=== PATIENT | male | born 1950 | race African-American/Black ===

== ENCOUNTER 2018-09-20 15:59 | Inpatient (IN) ==
[2018-09-20 18:24] LABS: Basophils % 0.4 % (0.0-0.8); Eosinophils % 0.1 % (0.00-10.9); Hematocrit 40.6 VOL% (42.0-52.0); Hemoglobin 12.7 GM/DL (14.0-18.0); Immature Granulocytes % 0.4 %; Immature Granulocytes Absolute 0.03 #; Lymphocytes % 12.9 % (21.2-54.2); Mean Corpuscular HGB Conc 31.3 GM/DL (32-36); Mean Corpuscular Hemoglobin 27 PG (27-34); Mean Corpuscular Volume 86.9 FL (87-102); Mean Platelet Volume 10.3 FL (9.6-12.0); Monocytes # 0.7 10*3/uL (0.11-0.8); Monocytes % 9.2 % (1.7-12.7); Neutrophils # 6.2 10*3/uL (1.4-7.4); Platelet Count 239 T/CUMM (130-400); Red Blood Count 4.67 MC/CUMM (3.8-5.5); Red Cell Distribution Width 14.3 % (9.3-17.3); White Blood Count 8.1 T/CUMM (4-12)
[2018-09-20 18:30] LABS: PT Patient Result 10.6 SECS
[2018-09-20 18:32] LABS: Albumin 4.1 G/DL (3.4-5.0); Bilirubin,Total 0.8 MG/DL (0.2-1.0); Calcium 9.4 MG/DL (8.5-10.1); Osmolality,Calculated 285.4 MOS/KG (273-304); Potassium 4.5 MMOL/L (3.5-5.1); Total Protein 7.8 G/DL (6.4-8.3)
[2018-09-20] MEDS ORDERED: ONDANSETRON 4 MG/2 ML VIAL IV PRN (19:25)
[2018-09-20 20:14] LABS: Apearance,Urine Slightly Hazy (Clear); Bacteria,Urine Occasional /HPF (Few); Bilirubin,Urine Negative (Negative); Blood, Urine Moderate mg/dL (Negative); Glucose,Urine (UA) Negative (Negative); Hyaline Casts,Urine 5 /LPF (0-3); Ketones,Urine 5 mg/dL (Negative); Mucus,Urine Occasional /LPF (Occasional); Nitrite,Urine Negative (Negative); Protein,Urine 100 MG/DL; RBC,Urine 7 /HPF (0-4); Squamous Epithelial Cell,Urine Occasional /HPF (0-10); Urine Color Yellow (Yellow); Urine Specific Gravity 1.025 (1.001-1.035); WBC,Urine 4 /HPF (0-6)
[2018-09-20] MEDS: SODIUM CHLORIDE 0.9% 1,000 ML IV SCH (21:50)
[2018-09-20] MEDS ORDERED: PNEUMOCOCCAL VACCINE (13 VALENT) 0.5 ML SYRINGE IM ONE (22:04)
[2018-09-21] MEDS: SODIUM CHLORIDE 0.9% 1,000 ML IV SCH ×2 (04:44→14:27)
[2018-09-21 05:15] LABS: Basophils % 0.4 % (0.0-0.8); Eosinophils # 0.1 10*3/uL (0.0-0.87); Hematocrit 36.3 VOL% (42.0-52.0); Hemoglobin 11.5 GM/DL (14.0-18.0); Immature Granulocytes % 0.4 %; Immature Granulocytes Absolute 0.02 #; Lymphocytes # 1.2 10*3/uL (1.4-4.0); Lymphocytes % 23.6 % (21.2-54.2); Mean Corpuscular HGB Conc 31.7 GM/DL (32-36); Mean Corpuscular Hemoglobin 27 PG (27-34); Mean Corpuscular Volume 85.8 FL (87-102); Mean Platelet Volume 10.9 FL (9.6-12.0); Monocytes # 0.6 10*3/uL (0.11-0.8); Monocytes % 12.2 % (1.7-12.7); Neutrophils # 3.3 10*3/uL (1.4-7.4); Neutrophils % 62.4 % (38.7-73.9); Platelet Count 213 T/CUMM (130-400); Red Blood Count 4.23 MC/CUMM (3.8-5.5); Red Cell Distribution Width 14.4 % (9.3-17.3); White Blood Count 5.3 T/CUMM (4-12)
[2018-09-21 05:37] LABS: Bilirubin,Total 0.5 MG/DL (0.2-1.0); Calcium 8.4 MG/DL (8.5-10.1); Osmolality,Calculated 293.7 MOS/KG (273-304); Potassium 4.2 MMOL/L (3.5-5.1); Total Protein 6.5 G/DL (6.4-8.3)
[2018-09-21] MEDS: CARBIDOPA/LEVODOPA 25-100 MG TABLET PO SCH ×3 (09:02→20:25)
[2018-09-21] MEDS: PANTOPRAZOLE 40 MG TABLET PO SCH (09:02)
[2018-09-21] MEDS: TEMAZEPAM 15 MG CAPSULE PO PRN (20:31)
[2018-09-21] MEDS: ACETAMINOPHEN 325 MG TABLET PO PRN (22:28)
[2018-09-22 05:15] LABS: Basophils % 0.5 % (0.0-0.8); Eosinophils # 0.1 10*3/uL (0.0-0.87); Eosinophils % 1.9 % (0.00-10.9); Hematocrit 37.3 VOL% (42.0-52.0); Hemoglobin 11.4 GM/DL (14.0-18.0); Immature Granulocytes % 0.2 %; Immature Granulocytes Absolute 0.01 #; Lymphocytes # 1.4 10*3/uL (1.4-4.0); Lymphocytes % 32.5 % (21.2-54.2); Mean Corpuscular HGB Conc 30.6 GM/DL (32-36); Mean Corpuscular Hemoglobin 27 PG (27-34); Mean Corpuscular Volume 88.4 FL (87-102); Mean Platelet Volume 10.6 FL (9.6-12.0); Monocytes # 0.6 10*3/uL (0.11-0.8); Monocytes % 13.4 % (1.7-12.7); Neutrophils # 2.2 10*3/uL (1.4-7.4); Neutrophils % 51.5 % (38.7-73.9); Platelet Count 199 T/CUMM (130-400); Red Blood Count 4.22 MC/CUMM (3.8-5.5); Red Cell Distribution Width 14.1 % (9.3-17.3); White Blood Count 4.2 T/CUMM (4-12)
[2018-09-22 05:33] LABS: Albumin 2.8 G/DL (3.4-5.0); Bilirubin,Total 0.7 MG/DL (0.2-1.0); Calcium 8.3 MG/DL (8.5-10.1); Risk Ratio 3.64; Thyroid Stimulating Hormone 1.92 uIU/ml (0.358-3.74); Total Protein 6.4 G/DL (6.4-8.3); VLDL CHOLESTEROL 21.2 MG/DL
[2018-09-22] MEDS: CARBIDOPA/LEVODOPA 25-100 MG TABLET PO SCH ×3 (09:10→20:34)
[2018-09-22] MEDS: PANTOPRAZOLE 40 MG TABLET PO SCH (09:10)
[2018-09-22] MEDS: SODIUM CHLORIDE 0.9% 1,000 ML IV SCH (17:03)
[2018-09-22] MEDS: TEMAZEPAM 15 MG CAPSULE PO PRN (21:01)
[2018-09-22] MEDS: ACETAMINOPHEN 325 MG TABLET PO PRN (22:16)
[2018-09-23 05:15] LABS: Basophils % 0.8 % (0.0-0.8); Eosinophils # 0.1 10*3/uL (0.0-0.87); Eosinophils % 2.6 % (0.00-10.9); Hematocrit 36.4 VOL% (42.0-52.0); Hemoglobin 11.7 GM/DL (14.0-18.0); Lymphocytes # 1.2 10*3/uL (1.4-4.0); Mean Corpuscular HGB Conc 32.1 GM/DL (32-36); Mean Corpuscular Hemoglobin 28 PG (27-34); Mean Corpuscular Volume 86.1 FL (87-102); Mean Platelet Volume 10.5 FL (9.6-12.0); Monocytes # 0.5 10*3/uL (0.11-0.8); Monocytes % 11.6 % (1.7-12.7); Neutrophils # 2.1 10*3/uL (1.4-7.4); Platelet Count 217 T/CUMM (130-400); Red Blood Count 4.23 MC/CUMM (3.8-5.5); Red Cell Distribution Width 13.7 % (9.3-17.3); White Blood Count 3.9 T/CUMM (4-12)
[2018-09-23 05:39] LABS: Calcium 8.6 MG/DL (8.5-10.1); Potassium 4.2 MMOL/L (3.5-5.1)
[2018-09-23] MEDS: PANTOPRAZOLE 40 MG TABLET PO SCH (08:07)
[2018-09-23] MEDS: CARBIDOPA/LEVODOPA 25-100 MG TABLET PO SCH ×3 (08:07→20:19)
[2018-09-23] MEDS: SODIUM CHLORIDE 0.9% 1,000 ML IV SCH ×3 (08:10→16:28)
[2018-09-23] MEDS: TEMAZEPAM 15 MG CAPSULE PO PRN (22:30)
[2018-09-24] MEDS: SODIUM CHLORIDE 0.9% 1,000 ML IV SCH ×2 (00:28→08:23)
[2018-09-24 05:16] LABS: Basophils % 0.7 % (0.0-0.8); Eosinophils # 0.1 10*3/uL (0.0-0.87); Eosinophils % 2.6 % (0.00-10.9); Hematocrit 35.5 VOL% (42.0-52.0); Hemoglobin 11.2 GM/DL (14.0-18.0); Immature Granulocytes % 0.5 %; Immature Granulocytes Absolute 0.02 #; Lymphocytes # 1.3 10*3/uL (1.4-4.0); Lymphocytes % 30.3 % (21.2-54.2); Mean Corpuscular HGB Conc 31.5 GM/DL (32-36); Mean Corpuscular Hemoglobin 27 PG (27-34); Mean Corpuscular Volume 86.6 FL (87-102); Mean Platelet Volume 10.2 FL (9.6-12.0); Monocytes # 0.5 10*3/uL (0.11-0.8); Monocytes % 11.5 % (1.7-12.7); Neutrophils # 2.3 10*3/uL (1.4-7.4); Neutrophils % 54.4 % (38.7-73.9); Platelet Count 225 T/CUMM (130-400); Red Cell Distribution Width 13.4 % (9.3-17.3); White Blood Count 4.3 T/CUMM (4-12)
[2018-09-24 05:29] LABS: Calcium 8.1 MG/DL (8.5-10.1); Osmolality,Calculated 280.3 MOS/KG (273-304); Potassium 3.8 MMOL/L (3.5-5.1)
[2018-09-24] MEDS: CARBIDOPA/LEVODOPA 25-100 MG TABLET PO SCH (08:22)
[2018-09-24] MEDS: PANTOPRAZOLE 40 MG TABLET PO SCH (08:23)
[2018-09-24] MEDS ORDERED: ASPIRIN EC 81 MG TABLET PO SCH (09:00)
[2018-09-24 11:58] VITALS: BP 144/79
== END 2018-09-24 15:50 | disposition home or self-care (01) | DRG 85 ==
LOC: N.ED 15:59 → N.EDINP 15:59 → N.2E 20:25
PROVIDERS: ADMIT Family Medicine; ATTEND Family Medicine

== ENCOUNTER 2019-01-01 09:16 | Inpatient (IN) ==
[2019-01-01 09:57] LABS: INR 1.1; Partial Thromboplastin Time < 21.0 SECS (0-40)
[2019-01-01 10:14] LABS: Alanine Aminotransferase 37 U/L (16-61); Albumin 3.8 G/DL (3.4-5.0); Alkaline Phosphatase 110 U/L (45-117); Aspartate Amino Transferase 36 U/L (0-37); Blood Urea Nitrogen 13 MG/DL (7-18); Calcium 9.1 MG/DL (8.5-10.1); Glucose 216 MG/DL (74-106); Osmolality,Calculated 289.1 MOS/KG (273-304); Total Protein 7.5 G/DL (6.4-8.3)
[2019-01-01 10:15] LABS: Eosinophils % 0.5 % (0.00-10.9); Hematocrit 39.8 VOL% (42.0-52.0); Hemoglobin 12.7 GM/DL (14.0-18.0); Lymphocytes % 20.9 % (21.2-54.2); Mean Corpuscular HGB Conc 31.9 GM/DL (32-36); Mean Corpuscular Volume 86.1 FL (87-102); Mean Platelet Volume 10.4 FL (9.6-12.0); Monocytes % 4.7 % (1.7-12.7); Neutrophils % 73.4 % (38.7-73.9); Platelet Count 251 T/CUMM (130-400); Red Blood Count 4.62 MC/CUMM (3.8-5.5); Red Cell Distribution Width 14.5 % (9.3-17.3); White Blood Count 14.3 T/CUMM (4-12)
[2019-01-01 10:16] LABS: Basophils % 0.2 % (0.0-0.8); Eosinophils # 0.1 10*3/uL (0.0-0.87); Immature Granulocytes % 0.3 %; Immature Granulocytes Absolute 0.04 #
[2019-01-01] MEDS ORDERED: ENOXAPARIN 80 MG/0.8 ML SYRINGE SUBCUT STA (10:24)
[2019-01-01] MEDS ORDERED: POTASSIUM CHLORIDE 20 MEQ TABLET PO STA (10:24)
[2019-01-01 10:50] LABS: Apearance,Urine CLOUDY (Clear); Bacteria,Urine Occasional /HPF (Few); Bilirubin,Urine Negative (Negative); Blood, Urine Moderate mg/dL (Negative); Glucose,Urine (UA) 50 mg/dL (Negative); Hyaline Casts,Urine 12 /LPF (0-3); Ketones,Urine 5 mg/dL (Negative); Mucus,Urine Few /LPF (Occasional); Nitrite,Urine Negative (Negative); Protein,Urine >=500 MG/DL; RBC,Urine 8 /HPF (0-4); Sperm,Urine Occasional /HPF (Negative); Squamous Epithelial Cell,Urine Occasional /HPF (0-10); Urine Color Yellow (Yellow); Urine Specific Gravity 1.018 (1.001-1.035); Urine Urobilinogen < 2.0 EU/DL (0.2-1.0); WBC,Urine 3 /HPF (0-6)
[2019-01-01 10:51] LABS: Barbiturates Screen,Urine Negative (Negative); Benzodiazepines Screen,Urine Negative (Negative); Cannabinoid Screen,Urine Negative (Negative); Opiate Screen,Urine Negative (Negative); Phencyclidine Screen,Urine Negative (Negative)
[2019-01-01] MEDS ORDERED: ONDANSETRON 4 MG/2 ML VIAL IV PRN (12:16)
[2019-01-01] MEDS ORDERED: ACETAMINOPHEN 325 MG TABLET PO PRN (12:16)
[2019-01-01] MEDS: ASPIRIN EC 81 MG TABLET PO SCH (15:30)
[2019-01-01 19:00] LABS: Appearance,CSF Clear; Red Blood Cell,CSF < 1 C/CUMM; White Blood Cell,CSF < 1 C/CUMM
[2019-01-01] MEDS: levETIRAcetam 500 MG TABLET PO SCH (21:33)
[2019-01-01] MEDS: DOCUSATE SODIUM 100 MG CAPSULE PO SCH (21:33)
[2019-01-01] MEDS: ATORVASTATIN 40 MG TABLET PO SCH (21:33)
[2019-01-02 08:02] LABS: Basophils % 0.3 % (0.0-0.8); Eosinophils % 0.5 % (0.00-10.9); Hematocrit 39.1 VOL% (42.0-52.0); Hemoglobin 12.2 GM/DL (14.0-18.0); Immature Granulocytes % 0.3 %; Immature Granulocytes Absolute 0.02 #; Lymphocytes # 1.7 10*3/uL (1.4-4.0); Lymphocytes % 27.8 % (21.2-54.2); Mean Corpuscular HGB Conc 31.2 GM/DL (32-36); Mean Corpuscular Volume 86.7 FL (87-102); Mean Platelet Volume 10.2 FL (9.6-12.0); Monocytes % 9.7 % (1.7-12.7); Neutrophils % 61.4 % (38.7-73.9); Platelet Count 198 T/CUMM (130-400); Red Blood Count 4.51 MC/CUMM (3.8-5.5); Red Cell Distribution Width 14.6 % (9.3-17.3); White Blood Count 6.1 T/CUMM (4-12)
[2019-01-02] MEDS: ASPIRIN EC 81 MG TABLET PO SCH (09:05)
[2019-01-02] MEDS: DOCUSATE SODIUM 100 MG CAPSULE PO SCH ×2 (09:05→20:22)
[2019-01-02] MEDS: levETIRAcetam 500 MG TABLET PO SCH ×2 (09:05→20:22)
[2019-01-02] MEDS: PANTOPRAZOLE 40 MG TABLET PO SCH (09:05)
[2019-01-02] MEDS: ATORVASTATIN 40 MG TABLET PO SCH (20:22)
[2019-01-03] MEDS: levETIRAcetam 500 MG TABLET PO SCH ×2 (09:20→21:08)
[2019-01-03] MEDS: PANTOPRAZOLE 40 MG TABLET PO SCH (09:20)
[2019-01-03] MEDS: DOCUSATE SODIUM 100 MG CAPSULE PO SCH ×2 (09:20→21:08)
[2019-01-03] MEDS: ASPIRIN EC 81 MG TABLET PO SCH (09:20)
[2019-01-03] MEDS ORDERED: TICAGRELOR 90 MG TABLET PO SCH (21:00)
[2019-01-03] MEDS: ATORVASTATIN 40 MG TABLET PO SCH (21:08)
[2019-01-04] MEDS: PANTOPRAZOLE 40 MG TABLET PO SCH (09:26)
[2019-01-04] MEDS: CLOPIDOGREL 75 MG TABLET PO SCH (09:26)
[2019-01-04] MEDS: levETIRAcetam 500 MG TABLET PO SCH ×2 (09:26→21:31)
[2019-01-04] MEDS: DOCUSATE SODIUM 100 MG CAPSULE PO SCH ×2 (09:26→21:31)
[2019-01-04] MEDS: ASPIRIN EC 81 MG TABLET PO SCH (09:26)
[2019-01-04] MEDS: ATORVASTATIN 40 MG TABLET PO SCH (21:31)
[2019-01-05 05:02] LABS: Basophils % 0.9 % (0.0-0.8); Eosinophils # 0.1 10*3/uL (0.0-0.87); Eosinophils % 2.4 % (0.00-10.9); Hematocrit 37.5 VOL% (42.0-52.0); Hemoglobin 12.1 GM/DL (14.0-18.0); Immature Granulocytes % 0.2 %; Immature Granulocytes Absolute 0.01 #; Lymphocytes # 1.6 10*3/uL (1.4-4.0); Lymphocytes % 34.3 % (21.2-54.2); Mean Corpuscular HGB Conc 32.3 GM/DL (32-36); Mean Corpuscular Volume 84.1 FL (87-102); Mean Platelet Volume 10.5 FL (9.6-12.0); Monocytes % 9.4 % (1.7-12.7); Neutrophils % 52.8 % (38.7-73.9); Platelet Count 233 T/CUMM (130-400); Red Blood Count 4.46 MC/CUMM (3.8-5.5); White Blood Count 4.6 T/CUMM (4-12)
[2019-01-05 05:56] LABS: Albumin 3.1 G/DL (3.4-5.0); Bilirubin,Total 0.9 MG/DL (0.2-1.0); Calcium 8.7 MG/DL (8.5-10.1); Osmolality,Calculated 282.1 MOS/KG (273-304); Total Protein 6.5 G/DL (6.4-8.3)
[2019-01-05 08:08] VITALS: BP 134/89
[2019-01-05] MEDS ORDERED: PIMAVANSERIN 34 MG PO SCH (09:00)
[2019-01-05] MEDS: CLOPIDOGREL 75 MG TABLET PO SCH (09:10)
[2019-01-05] MEDS: DOCUSATE SODIUM 100 MG CAPSULE PO SCH (09:10)
[2019-01-05] MEDS: levETIRAcetam 500 MG TABLET PO SCH (09:10)
[2019-01-05] MEDS: ASPIRIN EC 81 MG TABLET PO SCH (09:11)
[2019-01-05] MEDS: PANTOPRAZOLE 40 MG TABLET PO SCH (09:11)
[2019-01-05] MEDS ORDERED: CARBIDOPA/LEVODOPA 25-100 MG TABLET PO SCH (11:00)
== END 2019-01-05 10:32 | disposition home or self-care (01) | DRG 56 ==
LOC: EDBD → EDUNIT# → N.ED 09:16 → N.EDINP 10:25 → N.TELEN 12:16
PROVIDERS: ADMIT Family Medicine; ATTEND Family Medicine

== ENCOUNTER 2019-08-10 11:18 | Observation (INO) ==
[2019-08-10 13:27] LABS: Basophils % 0.5 % (0.0-0.8); Eosinophils % 0.4 % (0.00-10.9); Hematocrit 44.6 VOL% (42.0-52.0); Immature Granulocytes % 0.3 %; Immature Granulocytes Absolute 0.02 #; Lymphocytes % 12.8 % (21.2-54.2); Mean Corpuscular HGB Conc 31.4 GM/DL (32-36); Mean Corpuscular Volume 89.2 FL (87-102); Mean Platelet Volume 9.9 FL (9.6-12.0); Monocytes % 3.9 % (1.7-12.7); Neutrophils % 82.1 % (38.7-73.9); Platelet Count 271 T/CUMM (130-400); Red Cell Distribution Width 13.6 % (9.3-17.3); White Blood Count 7.4 T/CUMM (4-12)
[2019-08-10 13:47] LABS: Alanine Aminotransferase < 9 U/L (16-61); Albumin 3.7 G/DL (3.4-5.0); Alkaline Phosphatase 88 U/L (45-117); Aspartate Amino Transferase 13 U/L (0-37); Blood Urea Nitrogen 16 MG/DL (7-18); Calcium 9.3 MG/DL (8.5-10.1); Estimated Glom Filtration Rate 78 ML/MIN; Glucose 131 MG/DL (74-106); Osmolality,Calculated 281.4 MOS/KG (273-304); Total Protein 7.4 G/DL (6.4-8.3)
[2019-08-10 14:21] LABS: Alanine Aminotransferase < 9 U/L (16-61); Alkaline Phosphatase 100 U/L (45-117); Aspartate Amino Transferase 13 U/L (0-37); Blood Urea Nitrogen 16 MG/DL (7-18); Calcium 9.7 MG/DL (8.5-10.1); Estimated Glom Filtration Rate 86 ML/MIN; Glucose 134 MG/DL (74-106); Total Protein 7.4 G/DL (6.4-8.3)
[2019-08-10] MEDS ORDERED: ACETAMINOPHEN 325 MG TABLET PO PRN (17:39)
[2019-08-10] MEDS ORDERED: ONDANSETRON 4 MG/2 ML VIAL IV PRN (17:39)
[2019-08-10] MEDS ORDERED: INFLUENZA VIRUS VACCINE 0.5 ML SYRINGE IM ONE (18:30)
[2019-08-10] MEDS: SODIUM CHLORIDE 0.9% 1,000 ML IV SCH (18:45)
[2019-08-10] MEDS: CARBIDOPA/LEVODOPA 25-100 MG TABLET PO SCH (20:53)
[2019-08-10] MEDS: levETIRAcetam 500 MG TABLET PO SCH (20:53)
[2019-08-10] MEDS: ATORVASTATIN 40 MG TABLET PO SCH (20:53)
[2019-08-10] MEDS: DOCUSATE SODIUM 100 MG CAPSULE PO SCH (20:54)
[2019-08-11] MEDS: SODIUM CHLORIDE 0.9% 1,000 ML IV SCH ×4 (02:45→16:43)
[2019-08-11 03:36] LABS: Apearance,Urine CLEAR (Clear); Bilirubin,Urine Negative (Negative); Blood, Urine Negative (Negative); Glucose,Urine (UA) Negative (Negative); Hyaline Casts,Urine 1 /LPF (0-3); Ketones,Urine 5 mg/dL (Negative); Mucus,Urine Few /LPF (Occasional); Nitrite,Urine Negative (Negative); Protein,Urine Negative; RBC,Urine 4 /HPF (0-4); Urine Color Yellow (Yellow); Urine Specific Gravity 1.029 (1.001-1.035); WBC,Urine 2 /HPF (0-6)
[2019-08-11 06:33] LABS: Basophils # 0.1 10*3/uL (0.0-0.2); Basophils % 0.9 % (0.0-0.8); Eosinophils # 0.1 10*3/uL (0.0-0.87); Eosinophils % 2.6 % (0.00-10.9); Hematocrit 36.9 VOL% (42.0-52.0); Immature Granulocytes % 0.2 %; Immature Granulocytes Absolute 0.01 #; Lymphocytes # 1.7 10*3/uL (1.4-4.0); Lymphocytes % 31.7 % (21.2-54.2); Mean Corpuscular HGB Conc 32.5 GM/DL (32-36); Mean Corpuscular Volume 87.9 FL (87-102); Mean Platelet Volume 10.5 FL (9.6-12.0); Monocytes % 9.7 % (1.7-12.7); Neutrophils % 54.9 % (38.7-73.9); Platelet Count 236 T/CUMM (130-400); Red Cell Distribution Width 13.8 % (9.3-17.3); White Blood Count 5.4 T/CUMM (4-12)
[2019-08-11] MEDS: CARBIDOPA/LEVODOPA 25-100 MG TABLET PO SCH ×4 (06:38→18:01)
[2019-08-11 07:00] LABS: Albumin 3.2 G/DL (3.4-5.0); Bilirubin,Total 0.5 MG/DL (0.2-1.0); Calcium 8.4 MG/DL (8.5-10.1); Osmolality,Calculated 282.3 MOS/KG (273-304); Risk Ratio 2.94; Thyroid Stimulating Hormone 2.14 uIU/ml (0.358-3.74); Total Protein 6.4 G/DL (6.4-8.3); VLDL CHOLESTEROL 20.6 MG/DL
[2019-08-11] MEDS ORDERED: PIMAVANSERIN 34 MG PO SCH (09:00)
[2019-08-11] MEDS: ASPIRIN EC 81 MG TABLET PO SCH (09:17)
[2019-08-11] MEDS: amLODIPine 2.5 MG TABLET PO SCH (09:17)
[2019-08-11] MEDS: levETIRAcetam 500 MG TABLET PO SCH ×2 (09:17→20:22)
[2019-08-11] MEDS: DOCUSATE SODIUM 100 MG CAPSULE PO SCH ×2 (09:17→20:20)
[2019-08-11] MEDS: PANTOPRAZOLE 40 MG TABLET PO SCH (09:18)
[2019-08-11] MEDS: CLOPIDOGREL 75 MG TABLET PO SCH (09:18)
[2019-08-11] MEDS: ATORVASTATIN 40 MG TABLET PO SCH (20:20)
[2019-08-12 05:29] LABS: Basophils % 0.7 % (0.0-0.8); Eosinophils # 0.2 10*3/uL (0.0-0.87); Eosinophils % 3.1 % (0.00-10.9); Hematocrit 38.4 VOL% (42.0-52.0); Hemoglobin 11.9 GM/DL (14.0-18.0); Immature Granulocytes % 0.4 %; Immature Granulocytes Absolute 0.02 #; Lymphocytes # 1.7 10*3/uL (1.4-4.0); Lymphocytes % 31.2 % (21.2-54.2); Mean Corpuscular Volume 90.4 FL (87-102); Mean Platelet Volume 9.9 FL (9.6-12.0); Monocytes % 8.5 % (1.7-12.7); Neutrophils % 56.1 % (38.7-73.9); Platelet Count 215 T/CUMM (130-400); Red Blood Count 4.25 MC/CUMM (3.8-5.5); Red Cell Distribution Width 13.9 % (9.3-17.3); White Blood Count 5.4 T/CUMM (4-12)
[2019-08-12 05:50] LABS: Calcium 8.5 MG/DL (8.5-10.1); Osmolality,Calculated 276.4 MOS/KG (273-304)
[2019-08-12] MEDS: SODIUM CHLORIDE 0.9% 1,000 ML IV SCH ×2 (06:40→09:02)
[2019-08-12 08:10] VITALS: BP 138/79
[2019-08-12] MEDS: DOCUSATE SODIUM 100 MG CAPSULE PO SCH (08:27)
[2019-08-12] MEDS: CLOPIDOGREL 75 MG TABLET PO SCH (08:27)
[2019-08-12] MEDS: CARBIDOPA/LEVODOPA 25-100 MG TABLET PO SCH (08:27)
[2019-08-12] MEDS: levETIRAcetam 500 MG TABLET PO SCH (08:27)
[2019-08-12] MEDS: ASPIRIN EC 81 MG TABLET PO SCH (08:28)
[2019-08-12] MEDS: amLODIPine 2.5 MG TABLET PO SCH (08:28)
[2019-08-12] MEDS: PANTOPRAZOLE 40 MG TABLET PO SCH (08:28)
== END 2019-08-12 09:47 | disposition home or self-care (01) ==
LOC: N.EDINP 11:18 → N.ED 11:18 → N.2W 15:45 → N.2E 17:04
PROVIDERS: ADMIT Family Medicine; ATTEND Family Medicine

== ENCOUNTER 2020-03-13 16:21 | Inpatient (IN) ==
[2020-03-13] MEDS ORDERED: SODIUM CHLORIDE 0.9% 1,000 ML IV STA (17:06)
[2020-03-13 17:13] LABS: Basophils % 0.2 % (0.0-0.8); Hematocrit 25.4 VOL% (42.0-52.0); Hemoglobin 8.3 GM/DL (14.0-18.0); Immature Granulocytes % 0.4 %; Immature Granulocytes Absolute 0.05 #; Lymphocytes # 0.7 10*3/uL (1.4-4.0); Lymphocytes % 6.1 % (21.2-54.2); Mean Corpuscular HGB Conc 32.7 GM/DL (32-36); Mean Corpuscular Volume 86.1 FL (87-102); Mean Platelet Volume 10.2 FL (9.6-12.0); Monocytes % 6.8 % (1.7-12.7); Neutrophils % 86.5 % (38.7-73.9); Platelet Count 225 T/CUMM (130-400); Red Blood Count 2.95 MC/CUMM (3.8-5.5); White Blood Count 11.2 T/CUMM (4-12)
[2020-03-13] MEDS ORDERED: DIPH/TET/ACEL PERT BOOSTER VACCINE 0.5 ML VIAL IM ONE (17:30)
[2020-03-13 17:39] LABS: Alanine Aminotransferase 15 U/L (16-61); Albumin 3.3 G/DL (3.4-5.0); Alkaline Phosphatase 73 U/L (45-117); Aspartate Amino Transferase 22 U/L (0-37); Blood Urea Nitrogen 29 MG/DL (7-18); Estimated Glom Filtration Rate 63 ML/MIN; Glucose 136 MG/DL (74-106); Osmolality,Calculated 290.1 MOS/KG (273-304); Total Protein 6.3 G/DL (6.4-8.3)
[2020-03-13 19:52] LABS: Bacteria,Urine Occasional /HPF (Few); Bilirubin,Urine Negative (Negative); Blood, Urine Small mg/dL (Negative); Glucose,Urine (UA) Negative (Negative); Hyaline Casts,Urine 7 /LPF (0-3); Ketones,Urine 5 mg/dL (Negative); Mucus,Urine Few /LPF (Occasional); Nitrite,Urine Negative (Negative); Protein,Urine 30 MG/DL; RBC,Urine 1 /HPF (0-4); Squamous Epithelial Cell,Urine Occasional /HPF (0-10); Urine Appearance Slightly Hazy (Clear); Urine Color Yellow (Yellow); Urine Specific Gravity 1.026 (1.001-1.035); WBC,Urine 4 /HPF (0-6)
[2020-03-13 19:56] LABS: Barbiturates Screen,Urine Negative (Negative); Benzodiazepines Screen,Urine Negative (Negative); Cannabinoid Screen,Urine Negative (Negative); Opiate Screen,Urine Negative (Negative); Phencyclidine Screen,Urine Negative (Negative)
[2020-03-13 21:06] LABS: Hematocrit 24.5 VOL% (42.0-52.0)
[2020-03-13] MEDS: SODIUM CHLORIDE 0.9% 1,000 ML IV SCH (22:27)
[2020-03-14 01:47] LABS: Hematocrit 22.8 VOL% (42.0-52.0); Hemoglobin 7.4 GM/DL (14.0-18.0)
[2020-03-14] MEDS: SODIUM CHLORIDE 0.9% 1,000 ML IV SCH ×3 (08:52→16:38)
[2020-03-14] MEDS ORDERED: PIMAVANSERIN 34 MG PO SCH (09:00)
[2020-03-14 09:04] LABS: Hemoglobin 8.1 GM/DL (14.0-18.0)
[2020-03-14] MEDS: MEGESTROL 40 MG TABLET PO SCH (09:23)
[2020-03-14] MEDS: CLOPIDOGREL 75 MG TABLET PO SCH (09:23)
[2020-03-14] MEDS: ASPIRIN EC 81 MG TABLET PO SCH (09:23)
[2020-03-14] MEDS: levETIRAcetam 250 MG TABLET PO SCH ×2 (09:23→21:05)
[2020-03-14] MEDS: CARBIDOPA/LEVODOPA 25-100 MG TABLET PO SCH ×2 (12:10→19:02)
[2020-03-14 14:27] LABS: Hematocrit 23.5 VOL% (42.0-52.0); Hemoglobin 7.5 GM/DL (14.0-18.0)
[2020-03-14] MEDS ORDERED: CARBIDOPA/LEVODOPA 25-100 MG TABLET PO SCH (15:00)
[2020-03-14] MEDS: MIDODRINE 5 MG TABLET PO SCH ×2 (15:37→21:05)
[2020-03-14] MEDS: ESCITALOPRAM 10 MG TABLET PO SCH (21:05)
[2020-03-14] MEDS: ATORVASTATIN 40 MG TABLET PO SCH (21:05)
[2020-03-15] MEDS: SODIUM CHLORIDE 0.9% 1,000 ML IV SCH ×2 (00:06→11:45)
[2020-03-15 05:10] LABS: Basophils % 0.5 % (0.0-0.8); Eosinophils # 0.1 10*3/uL (0.0-0.87); Eosinophils % 0.7 % (0.00-10.9); Hematocrit 24.2 VOL% (42.0-52.0); Hemoglobin 7.7 GM/DL (14.0-18.0); Immature Granulocytes % 0.4 %; Immature Granulocytes Absolute 0.03 #; Lymphocytes # 1.8 10*3/uL (1.4-4.0); Lymphocytes % 23.3 % (21.2-54.2); Mean Corpuscular HGB Conc 31.8 GM/DL (32-36); Mean Corpuscular Volume 87.4 FL (87-102); Mean Platelet Volume 10.5 FL (9.6-12.0); Monocytes % 9.7 % (1.7-12.7); Neutrophils % 65.4 % (38.7-73.9); Platelet Count 204 T/CUMM (130-400); Red Blood Count 2.77 MC/CUMM (3.8-5.5); Red Cell Distribution Width 13.9 % (9.3-17.3); White Blood Count 7.6 T/CUMM (4-12)
[2020-03-15 06:15] LABS: Albumin 2.8 G/DL (3.4-5.0); Bilirubin,Total 1.4 MG/DL (0.2-1.0); Calcium 8.5 MG/DL (8.5-10.1); Risk Ratio 2.22; Thyroid Stimulating Hormone 1.48 uIU/ml (0.358-3.74); Total Protein 6.2 G/DL (6.4-8.3); VLDL CHOLESTEROL 11.6 MG/DL
[2020-03-15] MEDS: CARBIDOPA/LEVODOPA 25-100 MG TABLET PO SCH ×4 (06:30→18:05)
[2020-03-15 08:32] LABS: Basophils % 0.5 % (0.0-0.8); Eosinophils # 0.1 10*3/uL (0.0-0.87); Eosinophils % 0.9 % (0.00-10.9); Hemoglobin 7.8 GM/DL (14.0-18.0); Immature Granulocytes % 0.3 %; Immature Granulocytes Absolute 0.02 #; Lymphocytes # 1.3 10*3/uL (1.4-4.0); Lymphocytes % 20.6 % (21.2-54.2); Mean Corpuscular HGB Conc 32.5 GM/DL (32-36); Mean Platelet Volume 10.5 FL (9.6-12.0); Monocytes % 10.1 % (1.7-12.7); Neutrophils % 67.6 % (38.7-73.9); Platelet Count 202 T/CUMM (130-400); Red Blood Count 2.79 MC/CUMM (3.8-5.5); Red Cell Distribution Width 13.9 % (9.3-17.3); White Blood Count 6.4 T/CUMM (4-12)
[2020-03-15 08:38] LABS: Folate 3.5 NG/ML (5.4-24.0); Vitamin B12 349 PG/ML (211-911)
[2020-03-15] MEDS: levETIRAcetam 250 MG TABLET PO SCH ×2 (09:17→21:00)
[2020-03-15] MEDS: ASPIRIN EC 81 MG TABLET PO SCH (09:18)
[2020-03-15] MEDS: MIDODRINE 2.5 MG TABLET PO SCH ×3 (09:18→21:00)
[2020-03-15] MEDS: MULTIVITAMIN (CENTRUM) TABLET PO SCH (09:18)
[2020-03-15] MEDS: MEGESTROL 40 MG TABLET PO SCH (09:18)
[2020-03-15] MEDS: CLOPIDOGREL 75 MG TABLET PO SCH (09:18)
[2020-03-15 09:36] LABS: Sedimentation Rate-Westergren 25 MM/HR (0-20)
[2020-03-15] MEDS: ACETAMINOPHEN 325 MG TABLET PO PRN ×2 (17:57→22:23)
[2020-03-15] MEDS: ATORVASTATIN 40 MG TABLET PO SCH (21:01)
[2020-03-15] MEDS: ESCITALOPRAM 10 MG TABLET PO SCH (21:01)
[2020-03-16 04:56] LABS: Basophils % 0.4 % (0.0-0.8); Eosinophils # 0.1 10*3/uL (0.0-0.87); Eosinophils % 1.4 % (0.00-10.9); Hematocrit 23.7 VOL% (42.0-52.0); Hemoglobin 7.6 GM/DL (14.0-18.0); Immature Granulocytes % 0.3 %; Immature Granulocytes Absolute 0.02 #; Lymphocytes % 26.1 % (21.2-54.2); Mean Corpuscular HGB Conc 32.1 GM/DL (32-36); Mean Corpuscular Volume 87.1 FL (87-102); Mean Platelet Volume 10.4 FL (9.6-12.0); Monocytes % 9.3 % (1.7-12.7); Neutrophils % 62.5 % (38.7-73.9); Platelet Count 231 T/CUMM (130-400); Red Blood Count 2.72 MC/CUMM (3.8-5.5); White Blood Count 7.7 T/CUMM (4-12)
[2020-03-16 05:29] LABS: Albumin 2.7 G/DL (3.4-5.0); Bilirubin,Total 0.6 MG/DL (0.2-1.0); Calcium 8.6 MG/DL (8.5-10.1); Osmolality,Calculated 283.1 MOS/KG (273-304); Total Protein 5.9 G/DL (6.4-8.3)
[2020-03-16] MEDS: CARBIDOPA/LEVODOPA 25-100 MG TABLET PO SCH ×4 (06:14→19:10)
[2020-03-16] MEDS: levETIRAcetam 250 MG TABLET PO SCH ×2 (09:32→20:41)
[2020-03-16] MEDS: MULTIVITAMIN (CENTRUM) TABLET PO SCH (09:32)
[2020-03-16] MEDS: CLOPIDOGREL 75 MG TABLET PO SCH (09:32)
[2020-03-16] MEDS: FOLIC ACID 1 MG TABLET PO SCH (09:32)
[2020-03-16] MEDS: MEGESTROL 40 MG TABLET PO SCH (09:32)
[2020-03-16] MEDS: ASPIRIN EC 81 MG TABLET PO SCH (09:32)
[2020-03-16] MEDS: MIDODRINE 2.5 MG TABLET PO SCH ×3 (09:32→20:42)
[2020-03-16 11:05] LABS: Hemoglobin A1 (Alkaline) 97.3 % (96.5-98.5); Hemoglobin A2 (Alkaline) 2.7 % (1.5-3.5)
[2020-03-16] MEDS: ATORVASTATIN 40 MG TABLET PO SCH (20:42)
[2020-03-16] MEDS: ESCITALOPRAM 10 MG TABLET PO SCH (20:42)
[2020-03-17] MEDS: ACETAMINOPHEN 325 MG TABLET PO PRN ×2 (00:36→21:22)
[2020-03-17] MEDS: ZALEPLON 5 MG CAPSULE PO PRN ×2 (00:36→22:28)
[2020-03-17 05:39] LABS: Basophils % 0.4 % (0.0-0.8); Eosinophils # 0.1 10*3/uL (0.0-0.87); Eosinophils % 1.8 % (0.00-10.9); Hematocrit 23.1 VOL% (42.0-52.0); Hemoglobin 7.6 GM/DL (14.0-18.0); Immature Granulocytes % 0.3 %; Immature Granulocytes Absolute 0.02 #; Lymphocytes # 1.5 10*3/uL (1.4-4.0); Lymphocytes % 22.4 % (21.2-54.2); Mean Corpuscular HGB Conc 32.9 GM/DL (32-36); Mean Corpuscular Volume 86.2 FL (87-102); Mean Platelet Volume 10.5 FL (9.6-12.0); Monocytes % 8.8 % (1.7-12.7); Neutrophils % 66.3 % (38.7-73.9); Platelet Count 254 T/CUMM (130-400); Red Blood Count 2.68 MC/CUMM (3.8-5.5); Red Cell Distribution Width 14.1 % (9.3-17.3); White Blood Count 6.8 T/CUMM (4-12)
[2020-03-17 06:05] LABS: Calcium 8.6 MG/DL (8.5-10.1); Osmolality,Calculated 283.1 MOS/KG (273-304)
[2020-03-17] MEDS: CARBIDOPA/LEVODOPA 25-100 MG TABLET PO SCH ×4 (06:15→21:23)
[2020-03-17] MEDS: ASPIRIN EC 81 MG TABLET PO SCH (09:24)
[2020-03-17] MEDS: MIDODRINE 2.5 MG TABLET PO SCH ×3 (09:24→21:23)
[2020-03-17] MEDS: levETIRAcetam 250 MG TABLET PO SCH ×2 (09:24→21:22)
[2020-03-17] MEDS: MULTIVITAMIN (CENTRUM) TABLET PO SCH (09:24)
[2020-03-17] MEDS: FOLIC ACID 1 MG TABLET PO SCH (09:25)
[2020-03-17] MEDS: CLOPIDOGREL 75 MG TABLET PO SCH (09:25)
[2020-03-17] MEDS: MEGESTROL 40 MG TABLET PO SCH (09:25)
[2020-03-17] MEDS: ONDANSETRON 4 MG/2 ML VIAL IV PRN (12:28)
[2020-03-17] MEDS: ESCITALOPRAM 10 MG TABLET PO SCH (21:22)
[2020-03-17] MEDS: ATORVASTATIN 40 MG TABLET PO SCH (21:23)
[2020-03-17] MEDS: risperiDONE 0.25 MG TABLET PO PRN (23:54)
[2020-03-18 06:12] LABS: Basophils % 0.3 % (0.0-0.8); Eosinophils # 0.2 10*3/uL (0.0-0.87); Hematocrit 23.3 VOL% (42.0-52.0); Hemoglobin 7.6 GM/DL (14.0-18.0); Immature Granulocytes % 0.4 %; Immature Granulocytes Absolute 0.04 #; Lymphocytes # 1.7 10*3/uL (1.4-4.0); Lymphocytes % 16.3 % (21.2-54.2); Mean Corpuscular HGB Conc 32.6 GM/DL (32-36); Mean Corpuscular Volume 86.9 FL (87-102); Monocytes % 7.3 % (1.7-12.7); Neutrophils % 73.7 % (38.7-73.9); Platelet Count 277 T/CUMM (130-400); Red Blood Count 2.68 MC/CUMM (3.8-5.5); Red Cell Distribution Width 14.4 % (9.3-17.3); White Blood Count 10.4 T/CUMM (4-12)
[2020-03-18] MEDS: CARBIDOPA/LEVODOPA 25-100 MG TABLET PO SCH ×4 (06:24→21:19)
[2020-03-18 06:34] LABS: Calcium 8.8 MG/DL (8.5-10.1); Osmolality,Calculated 280.4 MOS/KG (273-304)
[2020-03-18] MEDS: MEGESTROL 40 MG TABLET PO SCH (10:16)
[2020-03-18] MEDS: MULTIVITAMIN (CENTRUM) TABLET PO SCH (10:16)
[2020-03-18] MEDS: CHOLECALCIFEROL 1,000 UNIT TABLET PO SCH (10:16)
[2020-03-18] MEDS: risperiDONE 0.25 MG TABLET PO PRN ×2 (10:16→21:19)
[2020-03-18] MEDS: CLOPIDOGREL 75 MG TABLET PO SCH (10:17)
[2020-03-18] MEDS: MIDODRINE 2.5 MG TABLET PO SCH ×3 (10:17→21:19)
[2020-03-18] MEDS: FOLIC ACID 1 MG TABLET PO SCH (10:17)
[2020-03-18] MEDS: levETIRAcetam 250 MG TABLET PO SCH ×2 (10:17→21:19)
[2020-03-18] MEDS: ASPIRIN EC 81 MG TABLET PO SCH (10:20)
[2020-03-18] MEDS: ESCITALOPRAM 10 MG TABLET PO SCH (21:19)
[2020-03-18] MEDS: ZALEPLON 5 MG CAPSULE PO PRN (21:19)
[2020-03-18] MEDS: ATORVASTATIN 40 MG TABLET PO SCH (21:19)
[2020-03-19 04:14] LABS: Basophils % 0.3 % (0.0-0.8); Eosinophils # 0.1 10*3/uL (0.0-0.87); Eosinophils % 0.7 % (0.00-10.9); Hematocrit 22.9 VOL% (42.0-52.0); Hemoglobin 7.4 GM/DL (14.0-18.0); Immature Granulocytes % 0.4 %; Immature Granulocytes Absolute 0.06 #; Lymphocytes # 1.7 10*3/uL (1.4-4.0); Lymphocytes % 12.9 % (21.2-54.2); Mean Corpuscular HGB Conc 32.3 GM/DL (32-36); Mean Corpuscular Volume 87.7 FL (87-102); Mean Platelet Volume 9.7 FL (9.6-12.0); Monocytes % 7.5 % (1.7-12.7); Neutrophils % 78.2 % (38.7-73.9); Platelet Count 305 T/CUMM (130-400); Red Blood Count 2.61 MC/CUMM (3.8-5.5); Red Cell Distribution Width 14.6 % (9.3-17.3); White Blood Count 13.5 T/CUMM (4-12)
[2020-03-19 04:39] LABS: Albumin 2.7 G/DL (3.4-5.0); Bilirubin,Total 0.8 MG/DL (0.2-1.0); Calcium 8.8 MG/DL (8.5-10.1); Osmolality,Calculated 275.8 MOS/KG (273-304); Total Protein 6.3 G/DL (6.4-8.3)
[2020-03-19] MEDS: LACTULOSE 20 GM/30 ML UDCUP PO PRN (09:47)
[2020-03-19] MEDS: MEGESTROL 40 MG TABLET PO SCH (09:47)
[2020-03-19] MEDS: CARBIDOPA/LEVODOPA 25-100 MG TABLET PO SCH ×4 (09:48→19:14)
[2020-03-19] MEDS: FOLIC ACID 1 MG TABLET PO SCH (09:48)
[2020-03-19] MEDS: CHOLECALCIFEROL 1,000 UNIT TABLET PO SCH (09:48)
[2020-03-19] MEDS: FERROUS SULFATE 325 MG TABLET PO SCH (09:48)
[2020-03-19] MEDS: ASPIRIN EC 81 MG TABLET PO SCH (09:48)
[2020-03-19] MEDS: levETIRAcetam 250 MG TABLET PO SCH ×2 (09:48→21:04)
[2020-03-19] MEDS: MULTIVITAMIN (CENTRUM) TABLET PO SCH (09:48)
[2020-03-19] MEDS: CLOPIDOGREL 75 MG TABLET PO SCH (09:48)
[2020-03-19] MEDS: MIDODRINE 2.5 MG TABLET PO SCH ×3 (09:48→21:05)
[2020-03-19] MEDS: ZALEPLON 5 MG CAPSULE PO PRN (21:04)
[2020-03-19] MEDS: ESCITALOPRAM 10 MG TABLET PO SCH (21:04)
[2020-03-19] MEDS: risperiDONE 0.25 MG TABLET PO PRN (21:04)
[2020-03-19] MEDS: ATORVASTATIN 40 MG TABLET PO SCH (21:04)
[2020-03-20] MEDS: cefTRIAXone 500 MG in SYRINGE 1 EACH IV SCH (01:10)
[2020-03-20] MEDS: ONDANSETRON 4 MG/2 ML VIAL IV PRN (02:46)
[2020-03-20 05:57] LABS: Basophils % 0.2 % (0.0-0.8); Eosinophils # 0.1 10*3/uL (0.0-0.87); Eosinophils % 0.9 % (0.00-10.9); Hematocrit 21.6 VOL% (42.0-52.0); Hemoglobin 7.2 GM/DL (14.0-18.0); Immature Granulocytes % 0.4 %; Immature Granulocytes Absolute 0.05 #; Lymphocytes # 1.2 10*3/uL (1.4-4.0); Lymphocytes % 9.5 % (21.2-54.2); Mean Corpuscular HGB Conc 33.3 GM/DL (32-36); Mean Corpuscular Volume 86.1 FL (87-102); Mean Platelet Volume 10.1 FL (9.6-12.0); Monocytes % 7.5 % (1.7-12.7); Neutrophils % 81.5 % (38.7-73.9); Platelet Count 345 T/CUMM (130-400); Red Blood Count 2.51 MC/CUMM (3.8-5.5); Red Cell Distribution Width 14.7 % (9.3-17.3); White Blood Count 12.3 T/CUMM (4-12)
[2020-03-20] MEDS: CARBIDOPA/LEVODOPA 25-100 MG TABLET PO SCH ×4 (06:00→19:02)
[2020-03-20] MEDS: MEGESTROL 40 MG TABLET PO SCH (09:28)
[2020-03-20] MEDS: CLOPIDOGREL 75 MG TABLET PO SCH (09:28)
[2020-03-20] MEDS: levETIRAcetam 250 MG TABLET PO SCH ×2 (09:28→21:32)
[2020-03-20] MEDS: FERROUS SULFATE 325 MG TABLET PO SCH (09:28)
[2020-03-20] MEDS: MIDODRINE 2.5 MG TABLET PO SCH ×4 (09:28→21:32)
[2020-03-20] MEDS: MULTIVITAMIN (CENTRUM) TABLET PO SCH (09:28)
[2020-03-20] MEDS: ASPIRIN EC 81 MG TABLET PO SCH (09:28)
[2020-03-20] MEDS: CHOLECALCIFEROL 1,000 UNIT TABLET PO SCH (09:28)
[2020-03-20] MEDS: FOLIC ACID 1 MG TABLET PO SCH (09:31)
[2020-03-20] MEDS: LACTULOSE 20 GM/30 ML UDCUP PO PRN (17:25)
[2020-03-20] MEDS: ESCITALOPRAM 10 MG TABLET PO SCH (21:32)
[2020-03-20] MEDS: ATORVASTATIN 40 MG TABLET PO SCH (21:33)
[2020-03-21] MEDS: cefTRIAXone 500 MG in SYRINGE 1 EACH IV SCH (02:25)
[2020-03-21 05:42] LABS: Basophils % 0.4 % (0.0-0.8); Eosinophils # 0.2 10*3/uL (0.0-0.87); Hematocrit 23.7 VOL% (42.0-52.0); Hemoglobin 7.6 GM/DL (14.0-18.0); Immature Granulocytes % 0.7 %; Immature Granulocytes Absolute 0.08 #; Lymphocytes % 17.7 % (21.2-54.2); Mean Corpuscular HGB Conc 32.1 GM/DL (32-36); Mean Corpuscular Volume 87.8 FL (87-102); Mean Platelet Volume 9.9 FL (9.6-12.0); Monocytes % 8.6 % (1.7-12.7); Neutrophils % 70.6 % (38.7-73.9); Platelet Count 408 T/CUMM (130-400); Red Cell Distribution Width 14.9 % (9.3-17.3); White Blood Count 11.1 T/CUMM (4-12)
[2020-03-21 06:03] LABS: Calcium 9.2 MG/DL (8.5-10.1); Osmolality,Calculated 279.5 MOS/KG (273-304)
[2020-03-21 08:37] VITALS: BP 105/53
[2020-03-21] MEDS: CLOPIDOGREL 75 MG TABLET PO SCH (09:00)
[2020-03-21] MEDS: levETIRAcetam 250 MG TABLET PO SCH (09:00)
[2020-03-21] MEDS: CARBIDOPA/LEVODOPA 25-100 MG TABLET PO SCH ×2 (09:00→12:54)
[2020-03-21] MEDS: CHOLECALCIFEROL 1,000 UNIT TABLET PO SCH (09:00)
[2020-03-21] MEDS: FOLIC ACID 1 MG TABLET PO SCH (09:00)
[2020-03-21] MEDS: MEGESTROL 40 MG TABLET PO SCH (09:01)
[2020-03-21] MEDS: MULTIVITAMIN (CENTRUM) TABLET PO SCH (09:01)
[2020-03-21] MEDS: ASPIRIN EC 81 MG TABLET PO SCH (09:01)
[2020-03-21] MEDS: MIDODRINE 2.5 MG TABLET PO SCH (09:01)
[2020-03-21] MEDS: FERROUS SULFATE 325 MG TABLET PO SCH (09:01)
[2020-03-21] MEDS: LACTULOSE 20 GM/30 ML UDCUP PO PRN (10:38)
== END 2020-03-21 13:03 | DRG 56 ==
LOC: EDBD → EDUNIT# → N.ED 16:21 → N.EDINP 19:25 → N.TELES 19:44
PROVIDERS: ADMIT Family Medicine; ATTEND Family Medicine